=== PATIENT | female | born 1985 | race Caucasian/White ===

== ENCOUNTER 2018-09-09 08:59 | Outpatient (CLI) | payer BC ==
--- NOTE | 2018-09-09 11:58 | ULT ---
OB ULTRASOUND: Date: 09/09/18 HISTORY: anatomy. FINDINGS: A single, live intrauterine gestation is seen, with measurements corresponding to an estimated gestat ional age of 18 weeks/5 days and ROBERT at 02/05/19. The estimated weight measures 259 gm, or 9 oz . measurements are as follows: BPD: 4.41 cm, 19 weeks/2 days HC: 16.22 cm, 19 weeks/0 days AC: 13.86 cm, 19 weeks/2 days FL: 2.70 cm, 18 weeks/2 days heart rate measures 157 beats/minute. Amniotic fluid is adequate. Placenta is posteriorly locat ed without evidence of placenta previa. Three vessel cord, cord insertion, kidneys, bladder, stomach, four chamber heart, lateral ventr icles, cerebellum, spine, lips/nose, upper/lower extremities are visualized. No significant abnormali ties are seen. IMPRESSION: Single, live intrauterine of 18 weeks/5 days estimated gestational age, and ROBERT at 02/05/19 . POS: CAMILA
== END 2018-09-09 09:00 | disposition home or self-care (01) ==
LOC: SCSULT 08:59
PROVIDERS: ATTEND Family Medicine
DX: Z34.92 Encounter for supervision of normal pregnancy, unspecified, second trimester (principal); Z3A.18 18 weeks gestation of pregnancy
CPT/HCPCS: 76805

== ENCOUNTER 2018-12-28 18:38 | Day surgery (SDC) | payer BC ==
[2018-12-28 19:16] VITALS: BMI 26.6
--- NOTE | 2018-12-28 19:54 | PRG ---
DATE OF SERVICE: 12/28/2018 TIME OF SERVICE: 19:35. PRESENTING COMPLAINT: 34 weeks' gestation, decreased movement. HISTORY OF PRESENT ILLNESS: Ms. Gibson is a 33-year-old G2, P1, at 34 weeks gestation by stated EDC, who reports decreased movement for the past 2 days. She has been on the impression she should feel 10 movements an hour on kick counts. She denies rupture of membranes. She denies complications. OB HISTORY: Antepartum record not on the unit. The patient denies complications. The patient has one previous spontaneous vaginal delivery. PAST SURGICAL HISTORY: Cardiac ablation. PAST MEDICAL HISTORY: None. ALLERGIES: NONE. MEDICATIONS: vitamins. SOCIAL HISTORY: Denies tobacco, alcohol, or drug use. FAMILY HISTORY: Reviewed. REVIEW OF SYSTEMS: Noncontributory. PHYSICAL EXAMINATION: GENERAL: White female, in no acute distress. VITAL SIGNS: Temperature 98.5, respirations 18, pulse 89, blood pressure 118/72. HEENT: Within normal limits. LUNGS: Clear to auscultation bilaterally. HEART: Regular rate and rhythm. ABDOMEN: Soft, nontender. No rebound or guarding. FHTs 140s. EXTREMITIES: Without clubbing, cyanosis, or edema. PELVIC: Deferred. LABORATORY DATA: nonstress test was carried for greater than 30 minutes. Category I heart rate tracing with baseline 130s with positive accelerations to 150s to 160s. No decelerations. No contractions and movement noted. IMPRESSION: 34 weeks' gestation with decreased movement, resolved with NST. PLAN: The patient to keep scheduled followup with Dr. Tere Nagel. Job ID: [id number]
== END 2018-12-28 19:46 | disposition home or self-care (01) ==
LOC: L&D/OP 18:38
PROVIDERS: ATTEND Family Medicine
DX: O36.8130 Decreased fetal movements, third trimester, not applicable or unspecified (principal); Z3A.34 34 weeks gestation of pregnancy
CPT/HCPCS: 99282

== ENCOUNTER 2019-02-05 18:05 | Inpatient (IN) | payer BC ==
[2019-02-05] MEDS ORDERED: Penicillin G Potassium 5 MILL.UNITS VIAL ONE (19:42)
[2019-02-05] MEDS ORDERED: Penicillin G Potassium 5 MILL.UNITS in Sodium Chloride 0.9% 100 ML IVPB ONE (19:45)
[2019-02-05] MEDS ORDERED: Butorphanol Tartrate 1 MG/ML VIAL SLOW IVP PRN (19:47)
[2019-02-05] MEDS ORDERED: Ondansetron PF 4 MG/2 ML Vial IVP PRN ×2 (19:47→23:30)
[2019-02-05] MEDS ORDERED: Promethazine HCl 25 MG/ML VIAL IM PRN ×2 (19:47→23:30)
[2019-02-05] MEDS ORDERED: Lactated Ringer's 1,000 ML IV PRN (19:48)
[2019-02-05] MEDS: Lactated Ringer's 1,000 ML IV SCH (19:50)
[2019-02-05 19:56] LABS: Hemoglobin 14.3 g/dL (12.0-16.0); Mean Corpuscular HGB CONC 34.4 g/dL (32.0-36.0); Mean Platelet Volume 8.4 fL (7.4-10.4); Platelet Count 210 thou/uL (130-400); RBC Distribution Width 11.7 % (11.5-14.5); Red Blood Cell (RBC) Count 4.61 mill/uL (4.20-5.40); White Blood Cell (WBC) Count 12.8 thou/uL (4.8-10.8)
[2019-02-05 20:01] VITALS: BMI 28.8
[2019-02-05] MEDS ORDERED: Lidocaine 1% (PF) 30 ML VIAL ONE (20:23)
[2019-02-05] MEDS ORDERED: Fentanyl 4 mcg/Bup 0.1% Cadd 100 ML ONE (20:27)
[2019-02-05 20:37] LABS: Syphilis Antibody Nonreactive (Nonreactive); Syphilis Antibody Index 0.04 S/CO (<1.00 Non-Reactive)
[2019-02-05] MEDS: NS / Oxytocin 40 units/1000ml 1,000 ML IV SCH ×2 (21:10→22:00)
[2019-02-05 22:43] LABS: HBSAg Index 0.21 S/CO (0-0.99); Hep B Surf Ag Non-Reactive S/CO (NonReactive)
[2019-02-05] MEDS ORDERED: Measles/Mumps/Rubella 10 MCG/0.5 ML VIAL SC SCH (23:30)
[2019-02-05] MEDS ORDERED: diphenhydrAMINE 25 MG CAP PO PRN (23:30)
[2019-02-05] MEDS ORDERED: Adacel (T-DAP) 0.5 ML SYRINGE IM SCH (23:30)
[2019-02-05] MEDS ORDERED: Preparation H Ointment 28 GM TUBE PR PRN (23:30)
[2019-02-05] MEDS ORDERED: Sodium Chloride 0.9% 1,000 ML IV SCH (23:30)
[2019-02-05] MEDS ORDERED: Bisacodyl 10 MG SUPP PR PRN (23:30)
[2019-02-05] MEDS ORDERED: HYDROcodone/Acetaminophen 5/325 mg Tablet PO PRN ×2 (23:30)
[2019-02-05] MEDS ORDERED: Benzocaine-Menthol 82.5 ML CAN TOP PRN (23:30)
[2019-02-05] MEDS ORDERED: Lanolin Ointment 7 GM TUBE TOP PRN (23:30)
[2019-02-05] MEDS ORDERED: Zolpidem Tartrate 5 MG TAB PO PRN (23:30)
[2019-02-05] MEDS ORDERED: Milk Of Magnesia 30 ML UDCUP PO PRN (23:30)
[2019-02-06] MEDS: Ibuprofen 800 MG TAB PO SCH ×3 (05:08→21:37)
[2019-02-06] MEDS: Lactated Ringer's 1,000 ML IV SCH ×2 (05:11→18:44)
[2019-02-06] MEDS: Penicillin G 2.5 MILL.units 2.5 MILL.UNITS in Premix Bag 1 BAG IVPB SCH ×3 (06:05→18:45)
[2019-02-06] MEDS: Prenatal Vitamin 1 TAB PO SCH (08:59)
[2019-02-06] MEDS: Docusate Calcium (SURFAK) 240 MG CAP PO SCH ×2 (08:59→21:37)
[2019-02-06] MEDS: Ferrous Sulfate 325 MG TAB PO SCH ×2 (10:13→17:03)
[2019-02-07] MEDS: Penicillin G 2.5 MILL.units 2.5 MILL.UNITS in Premix Bag 1 BAG IVPB SCH ×2 (00:15→05:26)
[2019-02-07] MEDS: Lactated Ringer's 1,000 ML IV SCH ×2 (00:15→05:27)
[2019-02-07] MEDS: Ibuprofen 800 MG TAB PO SCH (05:30)
[2019-02-07 08:27] VITALS: BP 103/57; TEMP 98.1
[2019-02-07] MEDS: Ferrous Sulfate 325 MG TAB PO SCH (08:38)
[2019-02-07] MEDS: Prenatal Vitamin 1 TAB PO SCH (09:41)
[2019-02-07] MEDS: Docusate Calcium (SURFAK) 240 MG CAP PO SCH (09:41)
--- NOTE | 2019-02-07 16:31 | OP ---
DATE OF PROCEDURE: 02/05/2019 PREOPERATIVE DIAGNOSIS: Term . POSTOPERATIVE DIAGNOSES: Term , plus cord around the neck x1. PROCEDURES PERFORMED: Spontaneous vaginal delivery with repair of a second-degree midline laceration. ANESTHESIA: Epidural. PROCEDURE: This 33-year-old white female, G2, P1 taken to the delivery room complete and pushing. Prepped and draped sterilely. Delivered a baby girl with Apgars of 8 at 1 minute and 9 at 5 minutes. Baby did breathe and cry vigorously upon delivery. The cord was clamped and cut. A small second-degree midline tear was repaired with 3-0 chromic. Delivered placenta with 3-vessel intact. Mother and baby did well. ESTIMATED BLOOD LOSS: 250 mL. Job ID: [id number]
== END 2019-02-07 14:15 | disposition home or self-care (01) | DRG 807 ==
LOC: L&D/OP 18:05 → L&D 21:21 → 3SW 02-06 00:10
PROVIDERS: ADMIT Family Medicine; ATTEND Family Medicine
PROC: 10E0XZZ Delivery of Products of Conception, External Approach (ICD-10-PCS; principal; 2019-02-05)
PROC: 0KQM0ZZ Repair Perineum Muscle, Open Approach (ICD-10-PCS; 2019-02-05)
DX: O99.824 Streptococcus B carrier state complicating childbirth (principal); Z37.0 Single live birth; O69.81X0 Labor and delivery complicated by cord around neck, without compression, not applicable or unspecified; O70.1 Second degree perineal laceration during delivery; Z3A.39 39 weeks gestation of pregnancy
CPT/HCPCS: 36415; 85027; 86780; 86850; 86900; 86901; 87340; J2001; J2540